=== PATIENT | female | born 1940 | race Caucasian/White ===

== ENCOUNTER 2017-06-26 02:31 | Emergency (ER) | payer MEDICARE, OTHER ==
[2017-06-26] MEDS ORDERED: Ketorolac 60 MG/2 ML SDV IM ONE (03:19)
--- NOTE | 2017-06-26 03:29 | EDM.PDOC ---
[id number]: R SIDE BACK PAIN Time Seen by Provider: 06/26/17 03:05 Source of Information: Reports: Patient, Family History Limitations: Reports: No Limitations - History of Present Illness INITIAL COMMENTS - FREE TEXT/NARRATIVE: 77-year-old female, otherwise healthy began developing a right-sided flank and upper abdominal discomfort with chills 4-6 hours ago, it increased to the point where she wasn't able to sleep and the pain became intense. She took 2 Advil and came into the emergency room. The Advil has "taken the edge off" but the pain persists. She is concerned about shingles, kidney stones, however she has no gallbladder or appendix. She had some mild nausea but no vomiting, no urinary symptoms. Denies shortness of breath or cough. No recent trauma. She has not had this pain in the past. Onset: Gradual Duration: Hour(s): (6 hours) Location: Reports: Abdomen, Back Quality: Reports: Ache, Sharp Severity: Moderate Improves with: Reports: None Worsens with: Reports: None Associated Symptoms: Denies: Chest Pain, Cough, Diaphoresis, Shortness of Breath Treatments SAMPLE GRINDER: Reports: NSAIDS right side back Pain Score (Numeric/FACES): 8 - Related Data Allergies Allergy/AdvReac Type Severity Reaction Status Date / Time cashew nut Allergy Airway Verified 06/26/17 03:00 Tightness levofloxacin [From Levaquin] Allergy Hyperactivi Verified 06/26/17 03:00 ty Sulfa (Sulfonamide Allergy Hives Verified 06/26/17 03:00 Antibiotics) meperidine [From Demerol] AdvReac Vomiting Verified 06/27/17 10:53 morphine AdvReac Vomiting Verified 06/27/17 10:53 Home Meds: Home Meds Levothyroxine [Synthroid] 50 mcg PO DAILY 06/26/17 [History] Past Medical History HEENT History: Reports: Hard of Hearing, Impaired Vision Cardiovascular History: Reports: None Respiratory History: Reports: Sleep Apnea, Other (See Below) Other Respiratory History: Cpap at home Gastrointestinal History: Reports: None HEADWAITER/HEADWAITRESS History: Reports: , Other (See Below) Other OB/BYN History: ovarian cyst Musculoskeletal History: Reports: Osteoarthritis Neurological History: Reports: None Psychiatric History: Reports: None Endocrine/Metabolic History: Reports: Hypothyroidism Hematologic History: Reports: Blood Transfusion(s) Immunologic History: Reports: None Oncologic (Cancer) History: Reports: Breast Dermatologic History: Reports: Other (See Below) Other Dermatologic History: karetosis - Infectious Disease History Infectious Disease History: Reports: Chicken Pox, Measles - Past Surgical History HEENT Surgical History: Reports: Eye Surgery, Other (See Below) Other HEENT Surgeries/Procedures: ear drum repair. tympanoplasty Cardiovascular Surgical History: Reports: None Respiratory Surgical History: Reports: None GI Surgical History: Reports: Appendectomy, Cholecystectomy, Colonoscopy Female Surgical History: Reports: Section, Hysterectomy, Mastectomy , Other (See Below) Other Female Surgeries/Procedures: right mastectomy 1985 Neurological Surgical History: Reports: Spinal Fusion, Other (See Below) Other Neurological Surgeries/Procedures: L4-L5, rods and screws placed Musculoskeletal Surgical History: Reports: Knee Replacement, Other (See Below) Other Musculoskeletal Surgeries/Procedures:: x2 partial knee surgeries Oncologic Surgical History: Reports: Biopsy of Breast Social & Family History - Tobacco Use Smoking Status *Q: Never Smoker - Caffeine Use Caffeine Use: Reports: None - Recreational Drug Use Recreational Drug Use: No ED ROS GENERAL - Review of Systems Review Of Systems: See Below Constitutional: Reports: Chills. Denies: Fever HEENT: Reports: No Symptoms Respiratory: Denies: Shortness of Breath, Pleuritic Chest Pain, Cough Cardiovascular: Denies: Chest Pain GI/Abdominal: Reports: Abdominal Pain (Right upper quadrant), Nausea. Denies: Vomiting Musculoskeletal: Reports: Back Pain (Right flank) Skin: Reports: No Symptoms Neurological: Reports: No Symptoms Psychiatric: Reports: No Symptoms ED EXAM, GENERAL - Physical Exam Exam: See Below Exam Limited By: No Limitations General Appearance: Alert, No Apparent Distress Eye Exam: Bilateral Eye: EOMI Respiratory/Chest: No Respiratory Distress, Lungs Clear, Chest Non-Tender Cardiovascular: Regular Rate, Rhythm GI/Abdominal: Soft, Non-Tender Back Exam: No: Paraspinal Tenderness, Vertebral Tenderness Neurological: Alert, Oriented Psychiatric: Normal Affect, Normal Mood Skin Exam: Warm, Dry Course - Vital Signs Last Recorded V/S: Last Vital Signs Temp 97.7 F 06/26/17 04:49 Pulse 83 06/26/17 04:49 Resp 16 06/26/17 04:49 BP 121/62 06/26/17 04:49 Pulse Ox 98 06/26/17 04:49 - Orders/Labs/Meds Labs: Laboratory Tests 06/26/17 Range/Units 03:19 Urine Color Yellow Urine Appearance Slightly cloudy Urine pH 6.0 (4.5-8.0) Ur Specific [place] 1.020 (1.008-1.030) Urine Protein Negative (NEGATIVE) mg/dL Urine Glucose (UA) Normal (NEGATIVE) mg/dL Urine Ketones Negative (NEGATIVE) mg/dL Urine Occult Blood Large (NEGATIVE) Urine Nitrite Negative (NEGATIVE) Urine Bilirubin Small (NEGATIVE) Urine Urobilinogen 4 (NORMAL) mg/dL Ur Leukocyte Esterase Moderate (NEGATIVE) Urine RBC 5-10 H (0-5) Urine WBC 0-5 (0-5) Ur Epithelial Cells Moderate Amorphous Sediment Not seen Urine Bacteria Few Urine Mucus Not seen Urine Other Meds: Medications Discontinued Medications Generic Name Dose Route Start Last Admin Trade Name Freq PRN Reason Stop Dose Admin Ketorolac Tromethamine 60 mg 06/26/17 03:19 06/26/17 03:28 Toradol IM 06/26/17 03:20 60 mg ONETIME ONE Administration - Re-Assessments/Exams Free Text/Narrative Re-Assessment/Exam: 06/26/17 03:33 A cannot reproduce her symptoms on physical exam, I cannot find any physical findings to explain the pain. A UA was checked and she was given 60 mg of Toradol IM. 06/26/17 05:05 UA showed 5-10 RBCs per high-power field which is a chronic finding for her urine. A CT scan of the abdomen and pelvis was obtained which was completely normal. The ketorolac injection markedly decreased her pain. She'll be discharged with 10 additional doses to take up to every 6-8 hours through the weekend and will return if she develops a fever, rash, worsening symptoms. Departure - Departure Time of Disposition: 05:18 Disposition: Home, Self-Care 01 Condition: Good Clinical Impression: Back pain Qualifiers: Back pain location: back pain in unspecified location Chronicity: acute Back pain laterality: right Qualified Code(s): M54.9 - Dorsalgia, unspecified - Discharge Information Instructions: Back Pain, Adult Referrals: PCP,None [Primary Care Provider] - Forms: ED Department Discharge Care Plan Goals: Continue with ketorolac for pain every 6-8 hours, increase activity as tolerated and return anytime if worsening such as fever, rash, or worsening pain.
[2017-06-26 04:50] VITALS: BP 121/62
== END 2017-06-26 05:18 | disposition home or self-care (01) ==
LOC: JP.ED 02:31
DX: M54.9 Dorsalgia, unspecified (principal); R10.11 Right upper quadrant pain; M19.90 Unspecified osteoarthritis, unspecified site; E03.9 Hypothyroidism, unspecified; Z85.3 Personal history of malignant neoplasm of breast; Z90.49 Acquired absence of other specified parts of digestive tract; Z98.890 Other specified postprocedural states; Z90.710 Acquired absence of both cervix and uterus; Z96.659 Presence of unspecified artificial knee joint; Z79.899 Other long term (current) drug therapy; Z88.1 Allergy status to other antibiotic agents; Z88.2 Allergy status to sulfonamides; Z91.018 Allergy to other foods; Z88.5 Allergy status to narcotic agent
CPT/HCPCS: 74176; 81001; 96372; 99284; J1885; 99283